=== PATIENT | male | born 1970 ===

== ENCOUNTER 2020-11-02 14:12 | Outpatient (REF) | payer SELFPAY ==
[2020-11-02 17:57] LABS: Albumin 4.3 g/dL (3.4-5.0); Anion Gap 13.2 mmol/L (3-11); BUN 20 mg/dL (7-18); CO2 23.8 mmol/L (21.0-32.0); CREATININE 0.8 mg/dL (0.70-1.30); Calculated LDL 115 mg/dL (<100); Chloride 101 mmol/L (98-107); Cholesterol 170 mg/dL (<200); Glucose 94 mg/dL (74-106); HDL Cholesterol 40 mg/dL (40-60); Potassium 4.2 mmol/L (3.5-5.1); Sodium 138 mmol/L (136-145); Triglyceride 77 mg/dL (<150)
[2020-11-02 18:18] LABS: PHOSPHORUS 3.8 mg/dL (2.6-4.7)
== END 2020-11-02 14:13 | disposition home or self-care (01) ==
LOC: NCHCN 14:12
PROVIDERS: Visit Provider Physician Assistant
DX: I10 Essential (primary) hypertension (principal); E78.5 Hyperlipidemia, unspecified; E66.3 Overweight; Z83.3 Family history of diabetes mellitus
CPT/HCPCS: 80061; 80069

== ENCOUNTER 2021-11-08 18:49 | Outpatient (REF) | payer SELFPAY ==
[2021-11-08 19:47] LABS: Anion Gap 12.3 mmol/L (3-11); BUN 13 mg/dL (7-18); CO2 25.7 mmol/L (21.0-32.0); CREATININE 0.8 mg/dL (0.70-1.30); Calcium 8.9 mg/dL (8.5-10.1); Calculated LDL 103 mg/dL (<100); Chloride 104 mmol/L (98-107); Cholesterol 175 mg/dL (<200); Glucose 102 mg/dL (74-106); HDL Cholesterol 54 mg/dL (40-60); Potassium 4.4 mmol/L (3.5-5.1); Sodium 142 mmol/L (136-145); Triglyceride 90 mg/dL (<150)
[2021-11-08 20:06] LABS: Hemoglobin A1C 5.2 % (<5.7)
[2021-11-09 18:29] LABS: PSA, Screening 0.9 ng/mL (<=3.5)
== END 2021-11-08 18:50 | disposition home or self-care (01) ==
LOC: NCHCN 18:49
PROVIDERS: Visit Provider Physician Assistant
DX: E78.5 Hyperlipidemia, unspecified (principal); I10 Essential (primary) hypertension; Z12.5 Encounter for screening for malignant neoplasm of prostate; Z83.3 Family history of diabetes mellitus; Z13.1 Encounter for screening for diabetes mellitus
CPT/HCPCS: 80048; 80061; 84153; 83036

== ENCOUNTER 2024-05-29 10:27 | Outpatient (REF) | payer SELFPAY ==
[2024-05-29 20:22] LABS: Abs Immature Grans 0.01 10^3/uL (0.0-0.06); Absolute Basophil Count 0.04 10^3/uL (0.0-0.2); Absolute Eosinophil Count 0.18 10^3/uL (0.0-0.7); Absolute Lymphocyte Count 2.09 10^3/uL (1.2-3.4); Absolute Monocyte Count 0.42 10^3/uL (0.1-0.8); Absolute Neutrophil Count 1.86 10^3/uL (1.2-6.7); Basophils % 0.9 %; Eosinophils % 3.9 %; HCT 44.9 % (40.0-50.0); HGB 15.2 g/dL (13.5-17.5); Immature Grans % 0.2 %; Lymphocytes % 45.4 %; MCH 32.1 pg (27.0-33.0); MCHC 33.9 % (32.0-36.0); MCV 95 fL (80-95); MPV 12.1 fL (8.0-11.0); Monocytes % 9.1 %; Neutrophils % 40.5 %; Platelet Count 173 10^3/uL (130-400); RBC 4.74 10^6/uL (4.36-5.78); RDW 11.5 % (11.8-14.1); RDW-SD 40.3 fL
[2024-05-29 20:48] LABS: ALT 18 U/L (16-63); AST 24 U/L (15-37); Albumin 4.3 g/dL (3.4-5.0); Alkaline Phosphatase 93 U/L (46-116); Anion Gap 9.6 mmol/L (3-11); BUN 21 mg/dL (7-18); Bilirubin, Total 0.99 mg/dL (0.2-1.0); CO2 27.4 mmol/L (21.0-32.0); CREATININE 0.8 mg/dL (0.70-1.30); Calcium 9.3 mg/dL (8.5-10.1); Chloride 105 mmol/L (98-107); Estimated GFR 104.51 (mL/min/1.73m2); Glucose 103 mg/dL (74-106); Potassium 4.3 mmol/L (3.5-5.1); Sodium 142 mmol/L (136-145); Total Protein 8.2 g/dL (6.4-8.2)
[2024-05-30 18:24] LABS: PSA, Diagnostic 1.1 ng/mL (<=3.5)
== END 2024-05-29 10:28 | disposition home or self-care (01) ==
LOC: NCHCN 10:27
PROVIDERS: Visit Provider Physician Assistant
DX: R35.1 Nocturia (principal)
CPT/HCPCS: 80053; 84153; 85025

== ENCOUNTER 2024-07-08 14:08 | Outpatient (REF) | payer SELFPAY ==
[2024-07-08 20:18] LABS: C & S Indicated? C&S Done As Ordered
[2024-07-08 20:19] LABS: Crystals Many Amorphous HPF (Negative)
== END 2024-07-08 14:09 | disposition home or self-care (01) ==
LOC: NCHCN 14:08
PROVIDERS: Visit Provider Physician Assistant
DX: R31.29 Other microscopic hematuria (principal)
CPT/HCPCS: 81015; 87086

== ENCOUNTER 2024-07-11 13:03 | Outpatient (REF) | payer SELFPAY ==
[2024-07-11 19:34] LABS: Uric Acid 4.7 mg/dL (3.5-7.2)
== END 2024-07-11 13:04 | disposition home or self-care (01) ==
LOC: NCHCN 13:03
PROVIDERS: PCP Physician Assistant; Visit Provider Physician Assistant
DX: R82.998 Other abnormal findings in urine (principal)
CPT/HCPCS: 84550